=== PATIENT | female | born 1950 | race Caucasian/White ===

== ENCOUNTER → 2021-12-01 | Day surgery (SDC) | payer OTHER ==
[~2021-12-01] VITALS: Ht 167.6 cm; Wt 68.9 kg
[~2021-12-01] MED LIST: ENALAPRIL-HCTZ1 EAC1 PO; IBU600 MG PO; MORGIDOX100 MG PO; ZETIA10 MG PO; ZOCOR20 MG PO
== END | disposition home or self-care (01) ==
LOC: CIR.AMB 06:18
PROVIDERS: ATTEND Obstetrics & Gynecology
DX: N84.0 Polyp of corpus uteri (principal); Z20.822 Contact with and (suspected) exposure to COVID-19; F17.210 Nicotine dependence, cigarettes, uncomplicated; E78.5 Hyperlipidemia, unspecified